=== PATIENT | male | born 1990 | race Caucasian/White ===

== ENCOUNTER 2022-09-29 23:34 | Emergency (ER) | payer OTHER ==
[~2022-09-29] VITALS: Ht 172.7 cm; Wt 88.5 kg
--- NOTE | 2022-09-30 00:02 | NUR ---
BIBPARENTS. R LOWER BACK PAIN SHOOTING DOWN STARTED YESTERDAY WORST X 3 HRS. AXO4. NO ACUTE RESPIRATORY DISTRESS. AMBULATORY.
[2022-09-30] MEDS ORDERED: KETOROLAC TROMETHAMINE INJ 30 MG/ML VIAL ONE (00:19)
[2022-09-30] MEDS ORDERED: CYCLOBENZAPRINE 10 MG TABLET ONE (00:20)
[2022-09-30] MEDS ORDERED: KETOROLAC TROMETHAMINE INJ 30 MG/ML VIAL IM ONE (00:30)
[2022-09-30] MEDS ORDERED: CYCLOBENZAPRINE 10 MG TABLET PO ONE (00:30)
[2022-09-30] MEDS ORDERED: KETO10TA2 PO (01:23)
[2022-09-30] MEDS ORDERED: CYCL5TAB PO (01:23)
[2022-09-30] MEDS ORDERED: KETOROLAC TROMETHAMINE 10 MG TABLET PO STA (01:38)
--- NOTE | 2022-09-30 01:41 | NUR ---
Patient discharged to home in stable condition. Written and verbal after care instructions given. Patient verbalizes understanding of instruction.
[2022-09-30 01:42] VITALS: BP 129/77
== END 2022-09-30 01:43 | disposition home or self-care (01) ==
LOC: ER 23:36
DX: S39.012A Strain of muscle, fascia and tendon of lower back, initial encounter (principal); J45.909 Unspecified asthma, uncomplicated; X58.XXXA Exposure to other specified factors, initial encounter; Y93.89 Activity, other specified; Y92.89 Other specified places as the place of occurrence of the external cause; Y99.8 Other external cause status
CPT/HCPCS: 99283; 96372; J1885